=== PATIENT | female | born 2000 | race Caucasian/White ===

== ENCOUNTER 2025-02-25 14:13 | Emergency (ER) | payer OTHER, MEDICAID, SELFPAY ==
[2025-02-25 14:35] VITALS: BP 110/70; PULSE 81; RESP 16; TEMP 37; O2SAT 98; BMI 22.4
--- NOTE | 2025-02-25 14:42 | XR_ITS ---
Examination: Pelvic ultrasound, transabdominal, complete Technique: Transabdominal ultrasound of the pelvis performed using grayscale imaging Date and time of exam: February 25, 2025 1551 hours INDICATIONS: Mid abdominal pelvic pain beginning one week ago FINDINGS: Uterus 7.6 cm endometrial stripe 0.8 cm No uterine mass or intrauterine gestation Right ovary 3.1 cm arterial flow free fluid adjacent to the right ovary Left ovary 3.3 cm arterial flow Mild fluid in the anterior cul-de-sac IMPRESSION: Mild fluid adjacent to the right ovary and in the cul-de-sac, differential would include pelvic inflammatory disease, recent rupture of a right ovarian cyst
--- NOTE | 2025-02-25 14:42 | XR_ITS ---
Examination: Abdomen sonogram, Limited Date and time of exam: February 25, 2025 1503 hours INDICATIONS: Mid abdominal pain beginning one week ago Technique: Real-time oliver scale transabdominal sonographic images of the upper abdomen obtained. Findings: Normal gallbladder. Normal common bile duct 0.1 cm Pancreatic head 2.0 cm Liver 12.5 cm no focal liver lesions Normal hepatopedal portal venous oh Patent IVC IMPRESSION: Normal gallbladder Normal common bile duct
[2025-02-25 15:05] LABS: Basophils # (Auto) 0.1 Thou/mm3 (0.0-0.2); Basophils % (Auto) 1 % (0-2.5); Eosinophils # (Auto) 0.0 Thou/mm3 (0.0-0.5); Eosinophils % (Auto) 0 % (0-10); Hematocrit 36.4 % (36.0-46.0); Hemoglobin 12.4 g/dL (12.0-16.0); Immature Granulocytes Auto 0.03 Thou/mm3 (0.00-0.00); Lymphocytes # (Auto) 2.0 Thou/mm3 (1.0-4.8); Lymphocytes % (Auto) 17 % (10-50); Mean Corpuscular HGB Conc 34.1 g/dl (31.0-37.0); Mean Corpuscular Hemoglobin 31.6 pg (25.0-35.0); Mean Corpuscular Volume 93 fL (80-100); Monocytes # (Auto) 0.7 Thou/mm3 (0.0-0.8); Monocytes % (Auto) 6 % (0-12); Neutrophils # (Auto) 8.9 Thou/mm3 (1.8-7.7); Neutrophils % (Auto) 76 % (37-80); Nucleated Red Blood Cell # 0.00 Thou/mm3 (0.00-0.00); Nucleated Red Blood Cell % 0 /100 WBC (0); Platelet Count 361 Thou/mm3 (140-440); RDW Standard Deviation 42.8 fL (36.4-46.3); Red Blood Count 3.93 Miln/mm3 (4.00-5.20); White Blood Count 11.8 Thou/mm3 (3.6-11.0)
[2025-02-25 15:23] LABS: Alanine Aminotransferase 8 U/L (10-49); Albumin, Serum 4.6 gm/dL (3.5-5.0); Albumin/Globulin Ratio 2.0 (1.2-2.2); Alkaline Phosphatase 49 U/L (46-116); Anion Gap 9 (7-16); Aspartate Amino Transferase 17 U/L (0-34); BUN/Creatinine Ratio 12 Ratio (12-20); Bilirubin,Total 0.8 mg/dL (0.3-1.2); Blood Urea Nitrogen 7 mg/dL (9-23); Calcium 9.5 mg/dL (8.3-10.6); Calcium (Corrected) 9.5 mg/dL (8.5-10.1); Carbon Dioxide 24.2 mMol/L (20.0-31.0); Chloride 107 mMol/L (98-107); Creatinine (Component) 0.6 mg/dL (0.6-1.3); Estimated Creatinine Clearance 105.6 mL/min (>60); Globulin 2.3 gm/dL (2.3-3.5); Glucose 88 mg/dL (74-106); Osmolality,Calculated 276 (275-295); Potassium 3.8 mMol/L (3.4-5.1); Sodium 140 mMol/L (136-145); Total Protein 6.9 gm/dL (5.7-8.2); eGFR > 60 See Note
[2025-02-25 16:12] LABS: Collection Type, Urine Clean Catch
[2025-02-25 16:42] LABS: HCG Qualitative,Urine Negative
[2025-02-25 17:23] LABS: Bacteria,Urine 2+; Bilirubin,Urine Negative (Negative); Blood,Urine Negative (Negative); Clarity,Urine Clear (Clear/Hazy); Color,Urine Lt-Yellow (Lt Yel-Yel); Culture Indicated,Urine Yes; Glucose, Urine Negative (Negative); Ketones,Urine Negative (Negative); Leukocyte Esterase,Urine Negative (Negative); Nitrite,Urine Negative (Negative); PH,Urine 7.5 (5.0-7.0); Protein,Urine Negative (Neg - Trace); RBC,Urine 2 /hpf (0-3); Specific Gravity,Urine 1.012 (1.001-1.035); Squamous Epithelial Cell,Urine 1 /hpf (0-5); Urobilinogen,Urine Negative mg/dL (0.0-1.0); WBC,Urine 1 /hpf (0-5)
--- NOTE | 2025-02-25 17:46 | EDNOTE_ITS ---
<Statement entered by Lia Connell MD - 03/16/25 06:05> As co-signing physician, I was present and available for consult prn. I concur with the plan and care as documented by the midlevel provider. ED Abdominal Pain RME/HPI General Chief Complaint: Abdominal Pain Stated complaint: ABD PAIN Time seen by provider: 02/25/25 17:22 Arrival date/time: 02/25/25 14:13 24-year-old female presents to the emergency department today for complaint of a 2-week history of mid to upper abdominal pain patient reports she saw her primary care doctor reports they ordered an outpatient ultrasound patient reports she would not like to wait for that and she like to get ultrasound lab work on her here Limitations: no limitations Related Data Previous Rx's ?Medication ?Instructions ?Recorded ibuprofen 600 mg tablet 600 mg PO TID PRN pain #30 t abs 03/30/21 hydroxyzine HCl 25 mg tablet 25 mg PO TID PRN anxiety #30 tabs 02/22/22 doxycycline hyclate 100 mg tablet 100 mg PO BID #14 ta bs 02/25/25 famotidine 20 mg tablet (Pepcid) 20 mg PO QDAY PRN ronnie n #10 tabs 02/25/25 Allergies Allergy/AdvReac Type Severity Reaction Status Date / Time No Known Allergies Allergy Verified 03/30/21 11:09 Review of Systems Review of Systems Systems Reviewed: All systems reviewed, normal except as documented Constitutional Constitutional: Reports system reviewed and no additional complaints, except as documented, Denies fever(s) and Denies headache(s) Eyes Eyes: Reports system reviewed and no additional complaints, except as documented and Denies blurry vision ENT Ears, Nose, Mouth, and Throat: Reports system reviewed and no additional complaints, except as documented, Denies headache(s), Denies nasal congestion and Denies nasal discharge Cardiovascular Cardiovascular: Reports system reviewed and no additional complaints, except as documented, Denies chest pain and Denies dyspnea Respiratory Respiratory: Reports system reviewed and no additional complaints, except as documented, Denies chest congestion, Denies cough and Denies dyspnea Gastrointestinal Gastrointestinal: Reports system reviewed and no additional complaints, except as documented and Reports abdominal pain Integumentary/Breasts Skin/Breast: Reports system reviewed and no additional complaints, except as documented and Denies rash Neurologic Neurologic: Reports system reviewed and no additional complaints, except as documented, Reports as per HPI and Denies headache(s) Past Medical History Past Medical History CARDIAC: Negative Congestive Heart Failure RESPIRATORY: Negative Chronic Obstructive Pulmonary Disease (COPD) GENITOURINARY: Negative Renal Disease MUSCULOSKELETAL: Positive Musculoskeletal Disorders and Scoliosis ENDOCRINE: Negative Diabetes Mellitus Type 1 or Diabetes Mellitus Type 2 Social History SMOKING STATUS: Never smoker ED Exam General Limitations: Present no limitations General appearance: Present alert and in no apparent distress Head Head exam: Present atraumatic Eye Eye exam: Present normal appearance, PERRL and EOMI ENT ENT exam: Present normal exam, normal oropharynx and mucous membranes moist Neck Neck exam: Present normal inspection, full ROM and trachea midline Chest Chest inspection: Present normal inspection and symmetric chest wall rise Respiratory Respiratory exam: Present normal lung sounds bilaterally; Absent respiratory distress Cardiovascular Cardiovascular exam: Present regular rate, normal rhythm and normal heart sounds Abdominal Exam Abdominal exam: Present soft and normal bowel sounds; Absent distention, tenderness, guarding, rebound, rigidity, Gomez's sign, Rovsing's sign or tenderness at McBurney's Point Abdominal tenderness: Absent RUQ or RLQ Extremities Exam Extremities exam: Present normal inspection and full ROM Back Exam Back exam: Present normal inspection and full ROM Neurological Exam Neurological exam: Present alert, oriented X3 and CN II-XII intact Psychiatric Psychiatric exam: Present normal affect and normal mood Skin Skin exam: Present warm, dry, intact and normal color Course Quality Measures none Orders Category Date Time Status US gall bladder Stat Exams 02/25/25 14:42 Completed US pelvic complete Stat Exams 02/25/25 14:42 Completed CBC Stat Lab 02/25/25 14:50 Completed Comprehensive Metabolic Panel Stat Lab 02/25/25 14:50 Completed HCG Qualitative,Urine Stat Lab 02/25/25 16:02 Completed UA, C/S IF [Urinalysis, C/S if Indicated] Stat Lab 02/25/25 16:02 Completed Urine Culture Stat Lab 02/25/25 16:02 Received Lidocaine 1% 20 ml [Xylocaine 1% 20 ML] Med 02/25/25 17:47 Discontinued 2.1 ml INFL X1 ONE cefTRIAXone [Rocephin] Med 02/25/25 17:47 Discontinued 1,000 mg IM X1 ONE Vital Signs Vital signs: Vital Signs Temperature 98.6 F 02/25/25 14:35 Pulse Rate 81 02/25/25 14:35 Respiratory Rate 16 02/25/25 14:35 Blood Pressure 110/70 02/25/25 14:35 Pulse Oximetry (%) 98 02/25/25 14:35 Oxygen Delivery Method Room Air 02/25/25 14:35 O2 saturation 98% room air within normal limits Abdominal Pain MDM MDM Narrative MDM Narrative:: 24-year-old female presents to the emergency department today for complaint of a 2-week history of mid to upper abdominal pain patient reports she saw her primary care doctor reports they ordered an outpatient ultrasound patient reports she would not like to wait for that and she like to get ultrasound lab work on her here On exam patient well-appearing patient does not appear ill or toxic no acute distress patient is nontender abdomen nontender pelvis Lab work obtained no acute emergent findings noted Ultrasound gallbladder obtained no acute emergent findings noted liver is normal Ultrasound of the pelvis obtained patient is found to have free fluid in the p carlos manuel Differentials include but not limited to PID, ovarian cyst rupture Discussed with patient the possibility STDs patient reports he does not believe she has an STD Patient will be treated with a course of antibiotics patient given first dose of Rocephin here discharge home with doxycycline Explained to the patient would like to patient follow-up with her PCP have outpatient STD testing patient states understanding Patient discharged home in no distress to follow-up with primary care doctor in the next 24 to 48 hours and for any worsening symptoms to return to the ER immediately Patient data External records reviewed:: [facility] previous records Clinical information provided by:: patient Social determinants that could affect healthcare access:: none Patient has the following chronic illnesses:: None How is presenting disease/condition affected by chronic disease/condition?: no chronic disease Evaluation data The following diagnostics were reviewed and interpreted by me:: lab results and radiology exam(s) Lab and/or radiology exams considered but not ordered:: Labs radiology obtained Interpretation Summary: Reviewed by me Medications / Prescriptions Medications or Prescriptions considered but not ordered:: Given Medication administrations:: Medication Administration History Discontinued Medications Ceftriaxone Sodium (Ceftriaxone Sod Inj 1,000 Mg Vial) 1,000 mg IM X1 ONE Stop: 02/25/25 17:48 Last Admin: 02/25/25 18:06 Dose: 1,000 mg Documented By: JLUIS Lidocaine HCl (Lidocaine Hcl 1% 20 Ml Vial) 2.1 ml INFL X1 ONE Stop: 02/25/25 17:48 Last Admin: 02/25/25 18:05 Dose: 2.1 ml Documented By: MF Given Consultations Consultation(s) initiated? (list below): No Diagnosis Differential diagnosis abdominal pain: abdominal pain, acute appendicitis, pancreatitis and small bowel obstruction Most likely diagnosis given after review of the tests above:: Abdominal pain Admission Indicated Admission indicated?: not indicated Admission Request Was there a request for admission?: No Disposition Plan Disposition Plan: Discharge Discharge Attestation Discharge Attestation: The patient and all family members were given an opportunity to ask questions and understood the discharge instructions. Discharge instructions specifically effects, indications for sooner follow up or return to the emergency department, and the expected course of current diagnosis. Patient condition: Stable Discharge Plan Plan Patient Disposition: HOME (Self Care) Discharge Disposition comment: Stable Prescriptions/Referrals Prescriptions/Med Rec: New famotidine [Pepcid] 20 mg tablet 20 mg PO QDAY PRN (Reason: pain) Qty: 10 0RF doxycycline hyclate 100 mg tablet 100 mg PO BID Qty: 14 0RF No Action ibuprofen 600 mg tablet 600 mg PO TID PRN (Reason: pain) Qty: 30 0RF hydroxyzine HCl 25 mg tablet 25 mg PO TID PRN (Reason: anxiety) Qty: 30 0RF Referrals: Chau Hoover MD [Primary Care Provider, Family Practice] - 02/26/25 Problem List Clinical Impression: Free fluid in pelvis, Abdominal pain Patient/Caregiver Discharge Instructions Education Materials: Abdominal Pain Additional Instructions: Please take antibiotics prescribed Please request H. pylori testing by your PCP Please bring copy of your ultrasound report to your PCP request STD testing For emergent concerns return immediately Print Language: Tanzanian Stand Alone Forms: Mary Award Info., Work/School Release, Patient Portal Info Letter ELIECER/LILIAN Supervising Physician ELIECER/LILIAN Supervising Physician: Dr. connell
[2025-02-25] MEDS: LIDOCAINE HCL 1% 20 ML VIAL 2.1 ML INFL (18:05)
[2025-02-25] MEDS: cefTRIAXone SOD INJ 1,000 MG VIAL 1000 MG IM (18:06)
== END 2025-02-25 18:24 | disposition home or self-care (01) ==
PROVIDERS: Nurse Practitioner Primary Care; Emergency Provider Emergency Medicine; PCP Family Medicine
DX: R18.8 Other ascites (principal); R10.10 Upper abdominal pain, unspecified
CPT/HCPCS: 36415; 76705; 76856; 80053; 81001; 81025; 85025; 87086; 96372; 99283; J0696; J3490